=== PATIENT | male | born 1960 | race Caucasian/White ===

== ENCOUNTER 2020-07-15 07:52 | Outpatient (CLI) | payer BC ==
--- NOTE | 2020-07-15 14:24 | CT ---
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 COMPARISON: 01/31/20 exam. There is some parenchymal scarring in the superior segment of the left lower lobe. On axial image 33, there is a 7 to 8 mm left lower lobe pulmonary nodule that is directly adjacent to the descending th oracic aorta. In retrospect, it is present on the prior examination. It is much more subtle and may p otentially be smaller with measurements of 6 to 7 mm obtained but the difference may just be related to small size and slice positioning. No pleural effusions. There is no significant mediastinal or hilar adenopathy. A thyroid nodule involving the inferior pole of the left lobe of the thyroid is stable. No significant axillary adenopathy is seen. CT OF ABDOMEN PERFORMED WITH CONTRAST ENHANCEMENT: Air within the biliary tree is again noted. Suggestion of some element of fatty change to the liver b ut no focal discrete mass. A biliary stent is in place. It appears unchanged in position. The spleen has been removed. The pancreas is very atrophic in appearance. Right adrenal gland is normal. Left kidney has been removed. Cortical scarring involving the right ki dney is a stable finding. No significant periaortic or mesenteric adenopathy. CT OF PELVIS PERFORMED WITH CONTRAST ENHANCEMENT: No adenopathy, mass, or free fluid. Prostate appears slightly enlarged. The bladder is not distended. Review of osseous structures show no lytic or blastic bony change. IMPRESSION: 1. 7 to 8 mm left lower lobe pulmonary nodule, much more difficult to visualize on the prior exa mination possibly slightly increased in size although difference is probably just related to slice po sitioning. 2. Stable appearance to left lobe thyroid nodule. 3. Post left nephrectomy and splenectomy change. Cortical scarring involving the right kidney. 4. Pneumobilia with biliary stent in place. This is a stable finding. POS: [facility]
== END 2020-07-15 07:53 | disposition home or self-care (01) ==
LOC: SCSCT 07:52
PROVIDERS: ATTEND Internal Medicine Hematology & Oncology
DX: C64.2 Malignant neoplasm of left kidney, except renal pelvis (principal); C77.0 Secondary and unspecified malignant neoplasm of lymph nodes of head, face and neck; R91.1 Solitary pulmonary nodule; E04.1 Nontoxic single thyroid nodule; N28.89 Other specified disorders of kidney and ureter; Z90.81 Acquired absence of spleen; Z90.5 Acquired absence of kidney; Z96.89 Presence of other specified functional implants
CPT/HCPCS: 71260; 74177